=== PATIENT | female | born 1985 | race Hispanic/Latino ===

== ENCOUNTER → 2019-12-12 | Outpatient (CLI) | payer SELFPAY ==
--- NOTE | 2019-12-12 11:10 | Diagnostic Imaging Report ---
EXAM: Right upper quadrant abdominal ultrasound INDICATION: Upper abdominal pain. COMPARISON: None. TECHNIQUE: Transverse and longitudinal images of the right upper quadrant abdomen were obtained FINDINGS: Liver: Size: 15.8 cm in the right midclavicular line, normal Appearance: Normal echogenicity, smooth contour Mass: No focal masses Gallbladder: No distension, pericholecystic fluid, wall thickening, stone, or reported sonographic Lim's sign. Gallbladder wall measures 0.2 cm. Bile Ducts: Intrahepatic Ducts: No dilatation Extrahepatic Ducts: Common bile duct measures 0.3 cm, no dilatation Pancreas: Partially visualized pancreas appears unremarkable. Kidney: The right kidney measures 10.5 cm without evidence of hydronephrosis or stone. Vessels: Aorta: Visualized portions are normal Inferior Vena Cava: Visualized portions are normal Main Portal Vein: 1.1 cm, normal size with hepatopetal flow. Free Fluid: No evidence of ascites. IMPRESSION: Borderline mild hepatomegaly. No cholelithiasis or cholecystitis. Signed by: Dr. Yuniel Watkins MD on 12/12/2019 11:06 AM
== END ==
LOC: US 08:51
PROVIDERS: ATTEND Internal Medicine
DX: R10.10 Upper abdominal pain, unspecified (principal); K21.9 Gastro-esophageal reflux disease without esophagitis
CPT/HCPCS: 76705